=== PATIENT | male | born 1955 | race Two or more races ===

== ENCOUNTER → 2020-08-12 | Outpatient (CLI) | payer OTHER ==
[~2020-08-12] MED LIST: ALLEGRA ALLERG180 MG PO; CELEBREX200MG; GILTUSS TR TAB1 EACH PO; TESSALON PERLE100 MG PO; VASOTEC5 MG; ZITHROMAX500 MG PO; ZYRTEC10 MG PO
== END | disposition home or self-care (01) ==
LOC: OFIC 805 08:00
PROVIDERS: ATTEND Otolaryngology Otology & Neurotology
DX: R09.82 Postnasal drip (principal); F45.8 Other somatoform disorders; J30.89 Other allergic rhinitis; K21.9 Gastro-esophageal reflux disease without esophagitis

== ENCOUNTER 2020-10-18 09:44 | Outpatient (CLI) | payer OTHER | END 2020-10-18 10:41 | disposition home or self-care (01) | LOC: OFIC 805 09:44 | PROVIDERS: ATTEND Otolaryngology Otology & Neurotology | DX: J30.89 Other allergic rhinitis (principal); K21.9 Gastro-esophageal reflux disease without esophagitis; R09.82 Postnasal drip ==

== ENCOUNTER 2020-10-18 11:24 | Outpatient (CLI) | payer OTHER | END 2020-10-18 11:28 | disposition home or self-care (01) | LOC: TOM 11:24 | PROVIDERS: ATTEND Otolaryngology Otology & Neurotology | DX: J32.4 Chronic pansinusitis (principal) ==

== ENCOUNTER 2020-11-04 08:18 | Outpatient (CLI) | payer OTHER | END 2020-11-04 08:35 | disposition home or self-care (01) | LOC: OFIC 805 08:18 | PROVIDERS: ATTEND Otolaryngology Otology & Neurotology | DX: R09.82 Postnasal drip (principal); F45.8 Other somatoform disorders; K21.9 Gastro-esophageal reflux disease without esophagitis ==

== ENCOUNTER 2021-01-29 14:24 | Outpatient (CLI) | payer OTHER | END 2021-01-29 15:25 | disposition home or self-care (01) | LOC: OFIC 805 14:24 | PROVIDERS: ATTEND Otolaryngology Otology & Neurotology | DX: J30.89 Other allergic rhinitis (principal); K21.9 Gastro-esophageal reflux disease without esophagitis; J34.89 Other specified disorders of nose and nasal sinuses; R09.82 Postnasal drip; F45.8 Other somatoform disorders ==

== ENCOUNTER 2021-07-27 09:00 | Outpatient (CLI) | payer OTHER | END 2021-07-27 09:30 | disposition home or self-care (01) | LOC: PPH VACUNA 09:00 | PROVIDERS: ATTEND Emergency Medicine Pediatric Emergency Medicine | DX: Z23 Encounter for immunization (principal) ==